=== PATIENT | male | born 1970 | race African-American/Black ===

== ENCOUNTER 2017-07-20 11:58 | Emergency (ER) | payer MEDICAID ==
[~2017-07-20] VITALS: Ht 174 cm; Wt 165.5 kg
[2017-07-20 12:00] VITALS: BP 143/83
[2017-07-20] MEDS ORDERED: SODIUM CHLORIDE FLUSH 10ML SYR IVF ONE (12:30)
[2017-07-20 13:06] LABS: HEMATOCRIT 42.1 % (39.2-51.8); HEMOGLOBIN 13.6 g/dL (13.7-18.0); WHITE BLOOD COUNT 8.5 x10^3/uL (3.4-10)
[2017-07-20 13:12] LABS: BLOOD UREA NITROGEN 11 mg/dL (7-18)
== END 2017-07-20 14:18 | disposition left against medical advice (07) ==
LOC: ED 14:12
DX: R07.89 Other chest pain (principal)
CPT/HCPCS: 36415; 71020; 80048; 82040; 85025; 93005; 99285

== ENCOUNTER 2019-07-18 14:00 | Emergency (ER) | payer MEDICAID, OTHER ==
[~2019-07-18] VITALS: Ht 172.7 cm; Wt 173.8 kg
[2019-07-18] MEDS ORDERED: HYDROmorphone 2 MG/ML, 1ML ONE (14:32)
[2019-07-18] MEDS ORDERED: ONDANSETRON ODT 4 MG ONE (14:33)
[2019-07-18] MEDS ORDERED: KETOROLAC 30 MG/1 ML ONE (14:33)
[2019-07-18] MEDS ORDERED: HYDROmorphone 1 MG/ML, 1ML VIAL IM ONE (15:00)
[2019-07-18] MEDS ORDERED: KETOROLAC 60 MG/2 ML IM ONE (15:00)
[2019-07-18] MEDS ORDERED: ONDANSETRON ODT 4 MG PO ONE (15:00)
--- NOTE | 2019-07-18 15:01 | NUR ---
MEDICATED PER EMAR
--- NOTE | 2019-07-18 16:00 | NUR ---
WITH REASSESSMENT PATIENT REPORTS PAIN IMPROVED TO 6/10 VSS ON NIBP/POX
--- NOTE | 2019-07-18 16:15 | NUR ---
PROVIDED WITH WALKER-PATIENT DEMONSTRATED SAFE USE OF FRANCINE WRAP X2 APPLIED TO LEFT KNEE
[2019-07-18 16:25] VITALS: BP 138/70
== END 2019-07-18 16:33 | disposition home or self-care (01) ==
LOC: ED 16:29
DX: S39.012A Strain of muscle, fascia and tendon of lower back, initial encounter (principal); M25.562 Pain in left knee; J45.909 Unspecified asthma, uncomplicated; W00.0XXA Fall on same level due to ice and snow, initial encounter; Y93.89 Activity, other specified; Y92.89 Other specified places as the place of occurrence of the external cause; Y99.8 Other external cause status
CPT/HCPCS: 72110; 73564; 96372; 99283; J1170; J1885; Q0162